=== PATIENT | female | born 1990 | race Caucasian/White ===

== ENCOUNTER → 2021-02-28 | Outpatient (CLI) | payer BC | LOC: DIA.ED 08:45 | DX: O24.419 Gestational diabetes mellitus in pregnancy, unspecified control (principal) | CPT/HCPCS: G0108 ==

== ENCOUNTER → 2021-03-16 | Outpatient (CLI) | payer BC ==
[~2021-03-16] MED LIST: IBU600 MG PO; NATURAL IRON65 MG PO; PRENATAL 191 CTB
== END ==
LOC: DIA.EDTELE 09:47
DX: O24.419 Gestational diabetes mellitus in pregnancy, unspecified control (principal)
CPT/HCPCS: G0108

== ENCOUNTER 2021-05-05 06:35 | Inpatient (IN) | payer BC ==
[~2021-05-05] VITALS: Ht 165.1 cm; Wt 76.4 kg
--- NOTE | 2021-05-08 19:20 | NUR ---
PT AMBULATED UP TO FLOOR AT THIS TIME AND SHOWN TO LDR 3 BY THIS RN. RN DISCUSSED PLAN OF CARE AND INSTRUCTED PT TO PUT ON GOWN. PT PRESENTS FOR CYTOTEC INDUCTION AT THIS TIME. PT IS G1PO, 40.4WEEKS, GDM-DIET CONTROLLED, GBS-, O+, RI. PT DENIES VAGINAL BLEEDING, CTX, OR DECREASED MOVEMENT
--- NOTE | 2021-05-08 19:26 | NUR ---
EFM AND TOCO APPLIED
[2021-05-08] MEDS ORDERED: NATURAL IRON65 MG PO (19:59)
[2021-05-08] MEDS ORDERED: PRENATAL 191 CTB (19:59)
[2021-05-08 20:00] VITALS: BP 120/81; PULSE 90; TEMP 97.6
--- NOTE | 2021-05-08 20:00 | NUR ---
PT DENIES FEELING CONTRACTIONS. RN PALPATES DURING CONTRACTION AND CONTRACTION PALPATES MILD
--- NOTE | 2021-05-08 20:45 | NUR ---
18G IV IN RIGHT FOREARM BY NICHO GAN . LAB COLLECTED WITH IV START. BEDSIDE GLUCOSE 113.
[2021-05-08 20:51] LABS: BASO # 0.1 K/mm3 (0.0-0.2); BASO % 0.4 % (0.0-2.0); EOS # 0.3 K/mm3 (0.0-0.7); EOS % 2.1 % (0.0-4.0); GRAN # 10.6 K/mm3 (1.4-6.5); GRAN % 75.6 % (42.2-75.2); HEMOGLOBIN 11.4 g/dl (12.5-16.0); LYMPH # 2.2 K/mm3 (1.2-3.4); LYMPH % 15.3 % (20.0-51.0); MEAN CELL VOLUME 87 fl (80.0-100.0); MEAN CORPUSCULAR HEMOGLOBIN 30 pg (27-31); MEAN CORPUSCULAR HGB CONC 35 g/dl (33.0-37.0); MEAN PLATELET VOLUME 11.9 fl (7.4-10.4); MONO # 0.8 K/mm3 (0.1-0.6); MONO % 5.7 % (1.7-9.3); PLATELET COUNT 201 K/mm3 (130-400); RED BLOOD COUNT 3.77 M/mm3 (4.10-5.30); REDCELL DISTRIBUTION WIDTH-CV 13.1 % (11.5-14.5)
[2021-05-08 20:52] LABS: HEMATOCRIT 32.8 % (37.0-47.0)
[2021-05-08 21:00] VITALS: BP 124/83; PULSE 88
--- NOTE | 2021-05-08 21:00 | NUR ---
PT RESTING IN BED, NO SIGNS OF DISTRESS. CALL LIGHT WITHIN REACH. PT DENIES FURTHER NEEDS AT THIS TIME
[2021-05-08 21:15] VITALS: BP 124/83; PULSE 88
--- NOTE | 2021-05-08 21:25 | NUR ---
PT SITTING UPRIGHT IN BED WATCHING TV, NO SIGNS OF DISTRESS. RN UPDATED PT ON PLAN OF CARE AND SHE VERBALIZED AN UNDERSTANDING. RN REVIEWED EDUCATION FOLDER AND CERTIFICATE FORM WITH PARENTS AND THEY VERBALIZED AN UNDERSTANDING. PT DENIES FURTHER NEEDS AT THIS TIME
[2021-05-08 21:30] VITALS: BP 119/81; PULSE 85
[2021-05-08 21:45] VITALS: BP 124/80; PULSE 81
--- NOTE | 2021-05-08 21:47 | NUR ---
BREAKS IN FHTS ARE OBSERVED DURING MATERNAL POSITION CHANGE. MATERNAL CONINCIDENCE IS OBSERVED. RN AT BEDSIDE TO ADJUST MONITOR
[2021-05-08 22:00] VITALS: BP 118/78; PULSE 78
--- NOTE | 2021-05-08 22:07 | NUR ---
EFM AND TOCO REMOVED TO ALLOW PT TO AMBULATE TO BATHROOM.
--- NOTE | 2021-05-08 22:24 | NUR ---
VISIBLE BREAKS IN FHTS ARE OBSERVED. RN AT BEDSIDE TO ADJUST MONITORS. MOVEMENT IS HEARD ON MONITOR. PT DENIES FURTHER NEEDS AT THIS TIME
--- NOTE | 2021-05-08 22:37 | NUR ---
EFM AND TOCO REMOVED TO ALLOW PATIENT TO AMBULATE TO BATHROOM
--- NOTE | 2021-05-08 23:15 | NUR ---
2300- PT RESTING IN BED, NO SIGNS OF DISTRESS. BEDSIDE GLUCOSE- 85. PT REQUESTS PO VISTARIL FOR REST 2315- PT GIVEN 50MG VISTARIL PO FOR REST. PT DENIES FURTHER NEEDS AT THIS TIME. TOCO ADJUSTED.
[2021-05-09] VITALS (52 sets, daily range): BP systolic 102–148; BP diastolic 54–96; PULSE 64–110; TEMP 97.3–98.8
--- NOTE | 2021-05-09 00:21 | NUR ---
BREAKS IN FHTS ARE OBSERVED DURING MATERNAL REPOSITIONING. RN AT BEDSIDE TO ADJUST MONITOR
--- NOTE | 2021-05-09 00:30 | NUR ---
PT STATES CONTRACTIONS FEEL LIKE 'MENSTRUAL CRAMPS' AND DENIES FURTHER NEEDS AT THIS TIME
--- NOTE | 2021-05-09 01:00 | NUR ---
BEDSIDE GLUCOSE- 62. PT DENIES S/S OF HYPOGLYCEMIA. RN PROVIDED PT WITH SPRITE TO DRINK. PT DENIES FURTHER NEEDS. CALL LIGHT WITHIN REACH
--- NOTE | 2021-05-09 01:44 | NUR ---
PT TURNED TO LEFT LATERAL SIDE, APPEARS TO BE SLEEPING. NO SIGNS OF DISTRESS
--- NOTE | 2021-05-09 02:13 | NUR ---
PT APPEARS TO BE SLEEPING BUT RESPONDS TO VERBAL COMMANDS. PT TURNED TO LEFT SIDE, TOCO ADJUSTED. PT REPORTS CONTRACTIONS FEEL LIKE MENSTRUAL CRAMPS. PT DENIES FURTHER NEEDS AT THIS TIME
--- NOTE | 2021-05-09 02:17 | NUR ---
EFM AND TOCO REMOVED TO ALLOW PT TO AMBULATE TO BATHROOM TO VOID.
--- NOTE | 2021-05-09 02:35 | NUR ---
0231- EFM AND TOCO REMOVED TO ALLOW PT TO AMBULATE TO BATHROOM TO VOID 0234- VISIBLE BREAKS IN FHTS ARE OBSERVED. PT STANDING AT BEDSIDE GETTING BACK IN BED. RN ADJUSTING MONITOR. 0235- LR BOLUS STARTED AT THIS TIME. AND TOCO ADJUSTED
--- NOTE | 2021-05-09 03:04 | NUR ---
EFM AND TOCO REMOVED TO ALLOW PT TO AMBULATE TO BATHROOM TO VOID. CALL LIGHT WITHIN REACH. PT DENIES FURTHER NEEDS AT THIS TIME
--- NOTE | 2021-05-09 04:04 | NUR ---
PT STANDING AT BEDSIDE SWAYING, NO SIGNS OF DISTRESS. PT DENIES FURTHER NEEDS AT THIS TIME
--- NOTE | 2021-05-09 04:27 | NUR ---
BREAKS IN FHTS ARE OBSERVED WHILE PT IS STANDING AT BEDSIDE. RN IS AT BEDSIDE TO ADJUST MONITOR. RN OFFERS PT BIRTHING BALL. PT SITTING ON BIRTHING BALL AT BEDSIDE, NO SIGNS OF DISTRESS. PT DENIES FURTHER NEEDS AT THIS TIME
--- NOTE | 2021-05-09 04:45 | NUR ---
EFM AND TOCO REMOVED TO ALLOW PT TO AMBULATE TO BATHROOM. PT BACK TO BED AND POSITIONED ON LEFT SIDE
--- NOTE | 2021-05-09 05:15 | NUR ---
RN EXPLAINED PLAN OF CARE AND PT VERBALIZED AN UNDERSTANDING. TOCO AND EFM REMOVED TO ALLOW PT TO AMBULATE AND SHOWER PRIOR TO PITOCIN STARTING
--- NOTE | 2021-05-09 05:40 | NUR ---
PT BACK IN BED LAYING ON LEFT LATERAL SIDE SIPPING JUICE. EFM AND TOCO REAPPLIED
--- NOTE | 2021-05-09 06:00 | NUR ---
PITOCIN STARTED AT 2MUNITS/MIN AT THIS TIME. TWO NURSE BEDSIDE VERIFICATION DONE BY THIS RN AND Selena COSTA RN. PT RESTING ON RIGHT LATERAL SIDE WITH PEANUT BALL BETWEEN LEGS. PT DENIES FURTHER NEEDS AT THIS TIME
--- NOTE | 2021-05-09 06:10 | NUR ---
BEDSIDE REPORT GIVEN TO Elizabeth ENRIQUEZ RN AND CARE WAS TRANSFERRED AT THIS TIME.
--- NOTE | 2021-05-09 09:16 | NUR ---
Patient requesting epidural. Cortney Tiwari SPANISH LECTURER notified. LR bolus infusing.
--- NOTE | 2021-05-09 09:37 | NUR ---
0937- Pt call RN to bedside and states SROM. Moderate amount of clear amniotic fluid noted to pad. Patient states ctx more intense and feeling rectal pressure. Declines SVE. Patient coached through breathing with contractions. 0940- Ctx noted ever 1-1.5min. Pitocin to 6mu. LR bolus continues. 0955- T. Te BILLPOSTER to bedside for epidural placement. Patient assisted to edge of bed. 1005- Test dose at this time. See anesthesia record. FHR tracing intermittenty du to maternal position. RN remains at bedside. 1009- Patient wedge left. Plan of care and safety precautions reviewed. Resting with call light within reach. RN remains at bedside.
--- NOTE | 2021-05-09 10:00 | NUR ---
DIFFICULTY TRACING MATERNAL CTX PATTERN D/T MATERNAL MOVEMENT.
--- NOTE | 2021-05-09 10:15 | NUR ---
DIFFCULTY TRACING CTX PATTERN D/T MATERNAL POSITION AND MOVEMENT.
--- NOTE | 2021-05-09 12:20 | NUR ---
Recurrent late decels noted. Patient to left lateral position. 1224- Recurrent lates continue. Pt right lateral. 1227- Pitocin discontinued. O2 on via mask. Dr. Obrien notified. See physician notification
--- NOTE | 2021-05-09 12:30 | NUR ---
RN AT BEDSIDE AT 1220 FOR POSITION CHANGE, PATIENT MOVED TO LEFT LATERAL, D/T MONITOR TRACING POSITION CHANGE AGAIN AT 1224 TO RIGHT LATERAL. PIT OFF AT 1227 AND O2 VIA OXYMASK ON PATIENT. WILL CONTINUE TO MONITOR
--- NOTE | 2021-05-09 12:49 | NUR ---
[id number] OFF AT THIS TIME
--- NOTE | 2021-05-09 13:25 | NUR ---
1325- Patient reports intermittent rectal pressure and urge to push. SVE AL/+1. 1342- Patient reports increased rectal pressure and urge to push. SVE C/+2. Practice push at this time. Dr Obrien updated on pt. See physicain notificaiton. 1359- Patient instructed on pushing with contractions. Patient begins to push with contractions with RN at bedside. 1427- Patient continues to push with contractions with RN at bedside. Minimal progress. Dr. Obrien updated on pt. See physician notification. Pitocin restarted at 2mu per orders. 1453- Dr. Obrien requested at bedside for delivery. See physician notification. 1501- Dr. Obrien to bedside. Patient continues to push with contractions with nursing staff and provider at bedside. 1530- Patient with recurrent late decels. RN and Dr. Obrien remain at bedside pushing with pt with contractions. Slow progress. 1611- Spontaneous vaginal delivery of viable female . To mother's chest where dried and stimuated by nursery RN. Pitocin paused. 1612- Cord clamped x2 and cut by father. Care of assumed by Tammy Chowdhury RN. 1616- Spontaneous and intact delivery of placenta. Pitocin to 333ml/hr per orders. 1618- Straight cath by Dr. Obrien for 100ml urine. Second degree perineal laceration repaired by Dr. Obrien. Fundus firm, midline, and bleeding minimal. Josephine care provided, pads changed, and ice pack to perineum. Plan of care and safety precautions reviewed. See doctor dictation, anesthesia record, and nurses notes.
--- NOTE | 2021-05-09 18:30 | NUR ---
Report recieved. Resting in bed while feeding . Epidural catheter remains secured. BP cuff on left arm. Fundus firm and at the umbilicus. IV saline locked. Updated whiteboard and reviewed POC.
--- NOTE | 2021-05-09 19:20 | NUR ---
VS done. Fundus firm and at the umbilicus. Scant lochia noted. Ice pack and tucks pads in place. Able to move legs up and down in bed but unable to hold legs up for 5 seconds or greater. Infant in the nsy. Requests to nap while dad goes to get "carry out food." Lights dimmed.
--- NOTE | 2021-05-09 20:30 | NUR ---
Finished eating at this time. Able to hold both legs off the mattress of the bed. Lochia remains scant. Fundus remains firm, midline, at the umbilus. Sat on the side of the bed. Epidural catheter dc'd per order and bandaid placed; blue tip intact. Ambulated well to the restroom. Unable to void at this time, "I don't feel like I need to" verbalized post attempt. Pericare provided. Ice pack in place with tucks pads. Educated on peribottle, tucks and ice packs at this time. Fresh hospital gown in place. Belongings taken to room 207 by spouse. Ambulated well to room 207. Oriented to room. Requests to be left standing and ambulating. POC reviewed and whiteboard updated. Questions invited and declined.
[2021-05-10 00:30] VITALS: BP 112/63; PULSE 89; TEMP 98
[2021-05-10 05:00] VITALS: BP 113/69; PULSE 65; TEMP 97.8
[2021-05-10 06:28] LABS: HEMATOCRIT 25.6 % (37.0-47.0)
[2021-05-10 06:30] LABS: HEMOGLOBIN 8.8 g/dl (12.5-16.0)
[2021-05-10] MEDS ORDERED: IBU600 MG PO (07:22)
[2021-05-10 07:30] VITALS: BP 112/75; PULSE 72; TEMP 97.4
--- NOTE | 2021-05-10 09:59 | NUR ---
Initial visit; Parents thanked It Account Manager for offering congratulations and God's blessings for the of their son. It Account Manager thanked family for choosing our hospital.
[2021-05-10 12:45] VITALS: BP 114/72; PULSE 91; TEMP 98.5
[2021-05-10 16:10] VITALS: BP 124/69; PULSE 84; TEMP 98.4
[2021-05-10 21:00] VITALS: BP 126/88; PULSE 78; TEMP 98.2
--- NOTE | 2021-05-10 21:50 | NUR ---
FRESH ICE WATER GIVEN TO PT. PT RESTING IN BED NO SIGNS OF DISTRESS. RN ASKED PATIENT IF SHE WAS READY TO WATCH EDUCATION VIDEOS AND PT STATED SHE WOULD LIKE TO WAIT UNTIL THE MORNING. PT DENIES FURTHER NEEDS AT THIS TIME
[2021-05-11 01:34] VITALS: BP 111/72; PULSE 84; TEMP 98.4
[2021-05-11 08:10] VITALS: BP 116/69; PULSE 97; TEMP 97.9
[2021-05-11 16:20] VITALS: BP 122/74; PULSE 70; TEMP 98
== END 2021-05-11 18:05 | disposition home or self-care (01) | DRG 807 ==
LOC: LDR 05-08 19:13 → OB 05-08 19:13 → LDR 05-09 06:34 → OB 05-09 20:30
PROVIDERS: ADMIT Obstetrics & Gynecology
PROC: 3E0P7VZ Introduction of Hormone into Female Reproductive, Via Natural or Artificial Opening (ICD-10-PCS; 2021-05-08)
PROC: 10E0XZZ Delivery of Products of Conception, External Approach (ICD-10-PCS; principal; 2021-05-09)
PROC: 0KQM0ZZ Repair Perineum Muscle, Open Approach (ICD-10-PCS; 2021-05-09)
DX: O34.43 Maternal care for other abnormalities of cervix, third trimester (principal); Z37.0 Single live birth; O24.420 Gestational diabetes mellitus in childbirth, diet controlled; O70.1 Second degree perineal laceration during delivery; O99.284 Endocrine, nutritional and metabolic diseases complicating childbirth; E28.2 Polycystic ovarian syndrome; O43.123 Velamentous insertion of umbilical cord, third trimester; O90.81 Anemia of the puerperium; D64.9 Anemia, unspecified; Z3A.40 40 weeks gestation of pregnancy; Z86.16 Personal history of COVID-19
CPT/HCPCS: J2590; J7120

== ENCOUNTER 2023-05-23 06:11 | Inpatient (IN) | payer BC ==
[2023-05-23] VITALS (45 sets, daily range): BP systolic 97–153; BP diastolic 55–82; PULSE 65–123; TEMP 97.4–98.5
[~2023-05-23] VITALS: Ht 167.6 cm; Wt 73.2 kg
[2023-05-23] MEDS ORDERED: LR & Oxytocin 500 ML IV SCH ×2 (06:15)
[2023-05-23] MEDS ORDERED: LR 1,000 ML IV SCH (06:15)
[2023-05-23 07:46] LABS: BASO % 0.3 % (0.0-2.0); EOS # 0.2 K/mm3 (0.0-0.7); EOS % 1.2 % (0.0-4.0); GRAN # 8.9 K/mm3 (1.4-6.5); GRAN % 71.8 % (42.2-75.2); HEMATOCRIT 33.9 % (37.0-47.0); HEMOGLOBIN 11.3 g/dl (12.5-16.0); LYMPH # 2.4 K/mm3 (1.2-3.4); LYMPH % 19.1 % (20.0-51.0); MEAN CELL VOLUME 89 fl (80.0-100.0); MEAN CORPUSCULAR HEMOGLOBIN 30 pg (27-31); MEAN CORPUSCULAR HGB CONC 33 g/dl (33.0-37.0); MEAN PLATELET VOLUME 11.5 fl (7.4-10.4); MONO # 0.9 K/mm3 (0.1-0.6); MONO % 6.9 % (1.7-9.3); PLATELET COUNT 208 K/mm3 (130-400); REDCELL DISTRIBUTION WIDTH-CV 12.9 % (11.5-14.5)
--- NOTE | 2023-05-23 07:55 | NUR ---
0620 PT AMBULATORY TO LR3 WITH SPOUSE. CHANGED INTO CLEAN GOWN. 0630 FHR MONITOR/TOCO APPLIED. PT DENIES ANY VAGINAL BLEEDING, LEAKING OF FLUID OR REGULAR CONTRACTIONS. PT REPORTING GOOD MOVEMENT. VITAL SIGNS WNL. AFEBRILE. [id number] THIS RN AT BEDSIDE COMPLETING ASSESSMENTS, CONSENTS, AND IV PLACEMENT. THIS RN INTERMITTENTLY ADJUSTING FHR MONITOR. MOVEMENT AUDIBLE ON FHR MONITOR.
--- NOTE | 2023-05-23 09:12 | NUR ---
0905 DR ARROYO AT PT'S BEDSIDE DISCUSSING POC. PT VERBALIZES UNDERSTANDING. DR ARROYO CONFIRMS VERTEX PRESENTATION WITH ULTRASOUND.
--- NOTE | 2023-05-23 10:03 | NUR ---
MATERNAL HR TRACING DUE TO MATERNAL POSITION.
--- NOTE | 2023-05-23 10:10 | NUR ---
THIS RN ADJUSTING FHR MONITOR
--- NOTE | 2023-05-23 10:42 | NUR ---
THIS RN ADJUSTING FHR MONITOR. MOVEMENT AUDIBLE ON FHR MONITOR.
--- NOTE | 2023-05-23 10:58 | NUR ---
THIS RN ADJUSTING FHR MONITOR
--- NOTE | 2023-05-23 11:22 | NUR ---
1113 THIS RN AT PT'S BEDSIDE TO ADJUST FHR MONITOR. PT REQUESTS TO USE THE REST ROOM FIRST. [id number] PT OFF MONITOR. 1120 THIS RN AT BEDSIDE REAPPLYING AND READJUSTING FHR MONITOR.
[2023-05-23] MEDS ORDERED: ROPivacaine PF 0.2% 200 ML IV ONE (12:19)
--- NOTE | 2023-05-23 12:26 | NUR ---
1204 THIS RN IN ROOM AT PT'S BEDSIDE 1205 PT SITTING UP FOR EPIDURAL PLACEMENT 1207 MED NOLASCO CRNA AT PT'S BEDSIDE DISCUSSING POC. 1213 SINGLE SHOT GIVEN. PT TOLERATES WELL. BLOOD PRESSURE MONITORING [id number]. SAFETY PRECAUTIONS AND PLAN OF CARE DISCUSSED WITH PT. PT VERBALIZES UNDERSTANDING. 1227 THIS RN LEAVES BEDSIDE.
[2023-05-23] MEDS ORDERED: diphenhydrAMINE 25 MG CAP PO PRN (12:45)
[2023-05-23] MEDS ORDERED: Naloxone 0.4 MG/ML VIAL IV PRN ×2 (12:45→18:45)
[2023-05-23] MEDS ORDERED: Ondansetron 4 MG/2 ML VIAL IV PRN (12:45)
[2023-05-23] MEDS ORDERED: diphenhydrAMINE 50 MG/ML 1 ML VIAL IV PRN (12:45)
[2023-05-23] MEDS ORDERED: ePHEDrine 50 MG/10 ML VIAL IV PRN (12:45)
--- NOTE | 2023-05-23 15:48 | NUR ---
(DR ARROYO CALLS BACK ON DOCTOR PHONE AT [facility]) THIS RN PICKS UP AND GIVES DR ARROYO UPDATE ON PT. DR ARROYO STATES HE HAS ONE MORE PT LEFT IN CLINIC AND THEN WILL BE HEADED TO THE HOSPITAL.
[2023-05-23] MEDS ORDERED: Magnes Hydrox (MOM) 80 MG/ML 30 ML CUP PO PRN (17:45)
[2023-05-23] MEDS ORDERED: Loratadine 10 MG TAB PO PRN (17:45)
--- NOTE | 2023-05-23 18:21 | NUR ---
1600 SVE /+1. 1610 DR ARROYO NOTIFIED. [address] ARROYO AT BEDSIDE. BEGIN COACHING PT THROUGH PUSHING WITH CONTRACTIONS. DR ARROYO AND THIS RN REMAIN AT BEDSIDE WHILE PT IS PUSHING UNTIL AFTER DELIVERY. 1715 DR ARROYO DISCUSSES VACUUM WITH PT. PT AGREES TO POC. 1720 PT PUSHING WITH CONTRACTION. ONE POP OFF WITH VACUUM. VACUUM NOT REAPPLIED. 1723 SPONTANEOUS DELIVERY OF VIABLE MALE . BULB SUCTIONED AND STIMULATED. CORD CLAMPED BY DR ARROYO AND CUT BY FOB. TO MOTHER'S CHEST FOR SKIN TO SKIN. 1729 SPONTANEOUS DELIVERY OF PLACENTA. PITOCIN BOLUS STARTED PER PROTOCOL. 2ND DEGREE PERINEAL LACERATION NOTED AND REPAIRED BY DR ARROYO. FUNDAL MASSAGE DONE. FIRM/MIDLINE. SCANT AMT OF BLEEDING NOTED. PERICARE DONE. CLEAN ICE PACK PAD PLACED. PT REPOSITIONED. SAFETY PRECAUTIONS AND POC DISCUSSED. PT VERBALIZES UNDERSTANDING.
[2023-05-23] MEDS ORDERED: Witch Hazel 50% Pads Bulk TUB TP PRN (18:45)
[2023-05-23] MEDS ORDERED: Measles/Mumps/Rubella Virus Vaccine Live w Diluent 0.5 ML VIAL SQ SCH (18:45)
[2023-05-23] MEDS ORDERED: oxyCODONE 5 MG TAB PO PRN (18:45)
[2023-05-23] MEDS ORDERED: Mag/Al Hydrox/Simeth Susp 30 ML CUP PO PRN (18:45)
[2023-05-23] MEDS ORDERED: Phenylephrine/Mineral Oil/Petrolatum 57 GM TUBE RC PRN (18:45)
[2023-05-23] MEDS ORDERED: Acetaminophen 500 MG TAB PO SCH (18:45)
[2023-05-23] MEDS ORDERED: Ibuprofen 600 MG TAB PO SCH (18:45)
[2023-05-23] MEDS ORDERED: traZODone 50 MG TAB PO PRN (21:00)
--- NOTE | 2023-05-23 22:45 | NUR ---
2230- PATIENT ABLE TO LIFT BILATERAL LOWER EXTREMITIES. PATIENT SITTING ON EDGE OF BED. EPIDURAL CATHETER REMOVED. PATIENT TOLERATED WELL. DENIES FEELING LIGHT HEADED. 2235- PATIENT ASSISTED TO RESTROOM FOLLOWING DELIVERY WITH SHOSHANA DRAKE. PERICARE PROVIDED. PATIENT UNABLE TO VOID AT THIS TIME. UNDERWEAR AND PAD ON. 224- PATIENT ASSISTED TO ROOM WITH ABY. PLAN OF CARE EXPLAINED TO PATIENT. QUESTIONS INVITED AND ANSWERED. CALL LIGHT WITHIN REACH.
--- NOTE | 2023-05-24 00:35 | NUR ---
PATIENT AMBULATORY TO UNIT WITH SPOUSE. PATIENT STATED SHE WOKE UP AROUND 0000 AND NOTICED A "BUNCH OF BLOOD AND WHEN SHE WAS WALKING TO THE RESTROOM IT KEPT TRICKLING DOWN HER LEG." PATIENT DENIES CONTRACTIONS. PATIENT HAD A PAD ON WHEN ARRIVING TO HOSPITAL AND NOTED TO HAVE MEDIUM AMOUNT OF BLOOD NOTED. PATIENT STATED SHE JUST GOT DISCHARGED FROM [facility] FROM RECENT VAGINAL BLEEDING EPISODE THIS WEEKEND. PATIENT STATES GOOD MOVEMENT. PATIENT CHANGED INTO HOSPITAL GOWN. EFMX2 APPLIED.
[2023-05-24 01:58] VITALS: BP 101/62; PULSE 74; TEMP 98.6
[2023-05-24 05:28] LABS: HEMOGLOBIN 11.2 g/dl (12.5-16.0)
[2023-05-24 05:36] LABS: HEMATOCRIT 32.8 % (37.0-47.0)
[2023-05-24 05:45] VITALS: BP 117/73; PULSE 68; TEMP 98.5
[2023-05-24] MEDS ORDERED: Sennosides/Docusate 8.6-50 MG TAB PO SCH (08:00)
[2023-05-24 08:10] VITALS: BP 112/75; PULSE 82; TEMP 97.5
[2023-05-24] MEDS ORDERED: Prenatal Vitamins/Iron/FA TAB PO SCH (09:00)
[2023-05-24 12:02] VITALS: BP 121/74; PULSE 89; TEMP 97.7
--- NOTE | 2023-05-24 13:12 | NUR ---
Initial visit attempt; Nurse with family, Bed Bug Exterminator left card offering Spiritual Care and offered God's blessings and congratulations for the of their son.
[2023-05-24 16:03] VITALS: BP 103/55; PULSE 79; TEMP 98.4
--- NOTE | 2023-05-24 19:00 | NUR ---
1900 WAITING FOR DISCHARGE. 1919 DISMISS INSTRUCTIONS GIVEN 1934 DISMISSED PER AMB TO HOME ACC BY BABY AND ORACLE DATABASE ADMINISTRATOR.
== END 2023-05-24 19:35 | disposition home or self-care (01) | DRG 807 ==
LOC: OB 06:11 → LDR 06:11 → OB 11:05
PROVIDERS: ADMIT Obstetrics & Gynecology
PROC: 10D07Z6 Extraction of Products of Conception, Vacuum, Via Natural or Artificial Opening (ICD-10-PCS; principal; 2023-05-23)
PROC: 0KQM0ZZ Repair Perineum Muscle, Open Approach (ICD-10-PCS; 2023-05-23)
PROC: 3E033VJ Introduction of Other Hormone into Peripheral Vein, Percutaneous Approach (ICD-10-PCS; 2023-05-23)
PROC: 10907ZC Drainage of Amniotic Fluid, Therapeutic from Products of Conception, Via Natural or Artificial Opening (ICD-10-PCS; 2023-05-23)
DX: O48.0 Post-term pregnancy (principal); Z37.0 Single live birth; Z3A.40 40 weeks gestation of pregnancy; O99.284 Endocrine, nutritional and metabolic diseases complicating childbirth; E28.2 Polycystic ovarian syndrome; O70.1 Second degree perineal laceration during delivery; O76 Abnormality in fetal heart rate and rhythm complicating labor and delivery
CPT/HCPCS: J2590; J2795; J7120